=== PATIENT | female | born 1995 | race American Indian/Alaskan Native ===

== ENCOUNTER 2016-02-23 03:37 | Emergency (ER) | payer MEDICARE ==
[2016-02-23 05:19] LABS: Basophils % (Auto) 0.9 % (0.0-1.8); Eosinophils % (Auto) 2.7 % (0.0-4.3); Hemoglobin 12.4 gm/dl (10.1-14.3); Mean Corpuscular HGB Conc 33 % (30-34); Mean Corpuscular Volume 79 fl (79-97); Platelet Count 149 K/mm3 (140-440); Red Blood Count 4.83 M/mm3 (3.65-5.03); Red Cell Distribution Width 13.9 % (13.2-15.2); White Blood Count 4.6 K/mm3 (4.5-11.0)
[2016-02-23 05:20] LABS: Mean Corpuscular Hemoglobin 26 pg (28-32)
[2016-02-23 05:36] LABS: Albumin 4.3 g/dL (3.9-5); Albumin/Globulin Ratio 1.4 %; Alkaline Phosphatase 53 units/L (35-129); Anion Gap 18 mmol/L; Bilirubin,Total 0.4 mg/dL (0.1-1.2); Blood Urea Nitrogen 13 mg/dL (7-17); Carbon Dioxide 26 mmol/L (22-30); Chloride 105.3 mmol/L (98-107); Glucose 85 mg/dL (65-100); Lipase 32 units/L (13-60); Potassium 4.4 mmol/L (3.6-5.0); Sodium 145 mmol/L (137-145); Total Protein 7.3 g/dL (6.3-8.2)
[2016-02-23 05:38] LABS: Alanine Aminotransferase < 5 units/L (7-56)
[2016-02-23 05:51] LABS: Bilirubin,Urine NEG (Negative); Blood,Urine LG (Negative); Ketones,Urine NEG (Negative); Leukocyte Esterase,Urine NEG (Negative); Mucus,Urine 3+ /HPF; Nitrite,Urine NEG (Negative)
[2016-02-23 07:59] VITALS: BP 112/65
--- NOTE | 2016-02-24 12:36 | ED Elopement Review ---
ED Pt Elopement review - Results review Lab results: Laboratory Tests 02/23/16 02/23/16 02/23/16 04:59 04:59 05:24 WBC 4.6 RBC 4.83 Hgb 12.4 Hct 38.0 MCV 79 MCH 26 L MCHC 33 RDW 13.9 Plt Count 149 Lymph % (Auto) 41.2 H [place] % (Auto) 14.1 H Eos % (Auto) 2.7 Baso % (Auto) 0.9 Lymph # 1.9 [place] # 0.6 Eos # 0.1 Baso # 0.0 Seg Neutrophils % 41.1 Seg Neutrophils # 1.9 Sodium 145 Potassium 4.4 Chloride 105.3 Carbon Dioxide 26 Anion Gap 18 BUN 13 Creatinine 0.5 L Estimated GFR > 60 BUN/Creatinine Ratio 26.00 Glucose 85 Calcium 9.0 Total Bilirubin 0.4 AST 11 ALT < 5 L Alkaline Phosphatase 53 Total Protein 7.3 Albumin 4.3 Albumin/Globulin Ratio 1.4 Lipase 32 Urine Color [place] Urine Turbidity Clear Urine pH 6.0 Ur Specific [place] 1.030 Urine Protein 100 mg/dl Urine Glucose (UA) Neg Urine Ketones Neg Urine Blood Lg Urine Nitrite Neg Urine Bilirubin Neg Urine Urobilinogen 4.0 Ur Leukocyte Esterase Neg Urine WBC (Auto) 5.0 Urine RBC (Auto) 27.0 U Epithel Cells (Auto) 19.0 H Urine Mucus 3+ - Call Back decision Pt Call Back Decision: No action required
== END 2016-02-23 12:20 | disposition left against medical advice (07) ==
LOC: ED 03:37
DX: R10.9 Unspecified abdominal pain (principal); Z53.21 Procedure and treatment not carried out due to patient leaving prior to being seen by health care provider
CPT/HCPCS: 36415; 80053; 81001; 83690; 85025